=== PATIENT | male | born 1995 | race Caucasian/White ===

== ENCOUNTER 2016-03-28 10:53 | Observation (INO) | payer OTHER ==
[~2016-03-28] VITALS: Ht 175.3 cm; Wt 76.0 kg
[2016-03-28] MEDS ORDERED: INSULIN HUMAN REGULAR 1,000 UNITS/10 ML VIAL SQ PRN (11:30)
[2016-03-28] MEDS ORDERED: ceFAZolin 1,000 MG/NS 100 ML IV SCH ×2 (11:30)
[2016-03-28] MEDS ORDERED: METOPROLOL TARTRATE 25 MG TAB PO PRN (11:30)
[2016-03-28 11:39] VITALS: BP 129/65; PULSE 52; RESP 16; TEMP 98.1; O2SAT 100
[2016-03-28] MEDS ORDERED: PROPOFOL 200 MG/20 ML AMP IV ONE (12:00)
[2016-03-28] MEDS ORDERED: NORMOSOL R INJ 2,000 ML IV ONE (12:00)
[2016-03-28] MEDS ORDERED: LACTATED RINGER'S 1000 ML IV SCH (12:00)
[2016-03-28] MEDS ORDERED: ONDANSETRON HCL 4 MG/2 ML VIAL IV PUSH ONE (12:00)
[2016-03-28] MEDS ORDERED: SODIUM CHLORID 0.9% 500 ML IV SCH (12:00)
[2016-03-28] MEDS ORDERED: FAMOTIDINE 20 MG/2 ML VIAL ONE ×2 (13:03→13:04)
[2016-03-28] MEDS ORDERED: MIDAZOLAM HCL 2 MG/2 ML VIAL ONE ×3 (13:03→14:12)
[2016-03-28] MEDS ORDERED: SUGAMMADEX SODIUM 200 MG/2 ML VIAL IV PUSH ONE ×2 (13:04)
[2016-03-28] MEDS ORDERED: IOHEXOL 350 MG/ML 50 ML BTL (for RAD DIAG) ONE (14:11)
[2016-03-28] MEDS ORDERED: fentaNYL CITRATE 250 MCG/5 ML AMP ONE (14:12)
--- NOTE | 2016-03-28 16:11 | RADRPT ---
EXAM DATE/TIME: 03/28/2016 14:12 [facility] COMPARISON: No previous studies available for comparison. INDICATIONS : Right renal disease. Post right ureteral stent placement. 0.37 minutes 2 CONTRAST: Instilled by Ordering Physician MEDICAL HISTORY : None. SURGICAL HISTORY : None. ENCOUNTER: Initial ACUITY: 1 day PAIN SCORE: Non-responsive. LOCATION: Right kidney. FINDINGS: Contrast is seen in the right collecting system. There appears to be some hydronephrosis. On the film marked #2 there is a internal double J stent in place. CONCLUSION: Internal double J stent in place. Sheldon Nunez MD on March 28, 2016 at 16:09 Board Certified Radiologist. This report was verified electronically.
[2016-03-28] MEDS ORDERED: oxyCODONE/ACETAMINOPHEN 5 MG/325 MG TAB PO PRN (18:15)
[2016-03-28] MEDS: PANTOPRAZOLE SODIUM 40 MG VIAL IV PUSH SCH (18:30)
[2016-03-28] MEDS ORDERED: *morphine SULFATE 8 MG/ML PERIprocedure ONLY ONE ×2 (18:42→18:53)
[2016-03-28] MEDS: SODIUM CHLOR 0.9% 1000 ML INJ 1,000 ML IV SCH (18:50)
[2016-03-28] MEDS ORDERED: DO NOT ADM ANY ANTICOAGULANT DRUGS XX PRN (19:00)
[2016-03-28] MEDS ORDERED: MORPHINE SULFATE 8 MG/ML INJ ONE (19:54)
[2016-03-28] MEDS: oxyCODONE/ACETAMINOPHEN 5 MG/325 MG TAB PO PRN (21:02)
[2016-03-28] MEDS: DOCUSATE SODIUM 100 MG CAP PO SCH (21:13)
[2016-03-28 21:29] VITALS: O2SAT 98
[2016-03-28 22:00] VITALS: BP 154/74; PULSE 62; RESP 20; TEMP 98.9; O2SAT 98
[2016-03-28] MEDS: MORPHINE SULFATE 4 MG/ML INJ IV PUSH PRN (22:17)
[2016-03-28] MEDS ORDERED: ACETAMINOPHEN 1000 MG/100 ML VIAL IV ONE (22:45)
[2016-03-28] MEDS: KETOROLAC TROMETHAMINE 30 MG/ML (IVP) VIAL IV PUSH SCH (22:57)
[2016-03-29] VITALS (8 sets, daily range): BP systolic 128–154; BP diastolic 68–79; PULSE 55–72; RESP 16–20; TEMP 97.2–98.9; O2SAT 96–98
[2016-03-29] MEDS: oxyCODONE/ACETAMINOPHEN 5 MG/325 MG TAB PO PRN ×2 (00:34→09:12)
[2016-03-29] MEDS: SODIUM CHLOR 0.9% 1000 ML INJ 1,000 ML IV SCH ×3 (02:55→20:15)
[2016-03-29] MEDS: MORPHINE SULFATE 8 MG/ML INJ IV PUSH PRN ×2 (02:56→20:12)
[2016-03-29] MEDS: KETOROLAC TROMETHAMINE 30 MG/ML (IVP) VIAL IV PUSH SCH ×4 (05:28→22:41)
[2016-03-29] MEDS: DOCUSATE SODIUM 100 MG CAP PO SCH ×2 (09:12→20:15)
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
[2016-03-29] MEDS: MORPHINE SULFATE 4 MG/ML INJ IV PUSH PRN (10:44)
[2016-03-29] MEDS ORDERED: ACETAMINOPHEN 1000 MG/100 ML VIAL IV ONE (11:30)
[2016-03-29] MEDS: ACETAMINOPHEN 1000 MG/100 ML VIAL IV SCH ×2 (13:41→18:36)
[2016-03-29] MEDS: PANTOPRAZOLE SODIUM 40 MG VIAL IV PUSH SCH (18:37)
--- NOTE | 2016-03-29 21:08 | HHI.PR ---
Subjective Remarks having right sided abdominal pain near drain site. IV Acetaminophen works best for him. Tolerating clears. Denies nausea, fevers. Passing flatus. Denies CP/ SOB. Has not been OOB. Objective Vital Signs Vital Signs Date Time Temp Pulse Resp B/P Pulse Ox O2 Delivery O2 Flow Rate FiO2 03/29/16 20:00 97.8 72 18 138/79 97 03/29/16 16:10 98 21 03/29/16 16:00 98.0 58 17 142/78 98 03/29/16 12:00 97.2 55 17 140/78 98 03/29/16 08:00 97.3 60 16 128/72 98 03/29/16 06:28 16 03/29/16 04:00 98.4 68 18 144/68 97 03/29/16 03:01 16 03/29/16 00:00 98.9 62 20 154/74 98 03/28/16 22:22 16 03/28/16 22:02 16 03/28/16 22:00 98.9 62 20 154/74 98 03/28/16 21:29 98 21 I/O 03/28/16 03/28/16 03/28/16 03/29/16 03/29/16 03/29/16 07:00 15:00 23:00 07:00 15:00 23:00 Intake Total 100 ml 220 ml 480 ml Output Total 250 ml 2650 ml 1370 ml Balance -150 ml -2430 ml -890 ml Intake Oral 220 ml 480 ml IV Total 100 ml Output Urine Total 250 ml 2620 ml 1370 ml Drainage Total 30 ml # Bowel Movements 0 Objective Remarks NAD. A/O x 3 non-labored respirations RRR abd soft, nondistended, appropriately tender, especially sensitive at drain site. No peritoneal signs. inc c/d/i urine clear, yellow. GALINA drain with scant serous drainage Ext NT. No c/c/e Procedures Right Robotic Pyeloplasty Assessment and Plan Assessment and Plan POD #1 s/p Right Robotic Pyeloplasty -Adjust pain meds. Add Acetaminophen IV every 6 hours -Advance diet -Scant drainage from GALINA. Good uop. Will d/c turk in a.m. -OOB today -GI/DVT prophylaxis Dwayne Malave MD Mar 29, 2016 21:08
[2016-03-29] MEDS: traMADol HCL 50 MG TAB PO SCH (21:16)
[2016-03-29] MEDS: HYDROmorphone HCL PF 1 MG/ML VIAL IV PUSH PRN (22:24)
[2016-03-30] MEDS: ACETAMINOPHEN 1000 MG/100 ML VIAL IV SCH ×3 (00:58→11:34)
[2016-03-30] MEDS: traMADol HCL 50 MG TAB PO SCH ×4 (02:44→20:07)
[2016-03-30] MEDS: KETOROLAC TROMETHAMINE 30 MG/ML (IVP) VIAL IV PUSH SCH ×2 (04:08→10:15)
[2016-03-30 05:53] LABS: BASOPHIL % 0.4 % (0.0-2.0); EOSINOPHIL # 0.1 TH/MM3 (0-0.4); EOSINOPHIL % 1.8 % (0.0-4.0); HEMATOCRIT 43.1 % (39.0-51.0); HEMO FLAGS DIFF FINAL; LYMPH % 29.1 % (9.0-44.0); LYMPHOCYTE # 2.4 TH/MM3 (1.0-4.8); MEAN CELL VOLUME 85.9 FL (80.0-100.0); MEAN CORPUSCULAR HEMOGLOBIN 30.3 PG (27.0-34.0); MEAN CORPUSCULAR HGB CONC 35.3 % (32.0-36.0); MONO % 7.3 % (0.0-8.0); NEUT % 61.4 % (16.0-70.0); PLATELET COUNT 215 TH/MM3 (150-450); RED BLOOD COUNT 5.02 MIL/MM3 (4.50-5.90); RED CELL DISTRIBUTION WIDTH 12.7 % (11.6-17.2); WHITE BLOOD COUNT 8.2 TH/MM3 (4.0-11.0)
[2016-03-30 06:06] LABS: BICARBONATE 29.3 MEQ/L (21.0-32.0); POTASSIUM 3.6 MEQ/L (3.5-5.1)
[2016-03-30] MEDS: ONDANSETRON HCL 4 MG/2 ML VIAL IV PUSH PRN (06:17)
[2016-03-30] MEDS: HYDROmorphone HCL PF 1 MG/ML VIAL IV PUSH PRN ×2 (06:18→14:52)
[2016-03-30 08:00] VITALS: BP 136/88; PULSE 54; RESP 16; TEMP 97.1; O2SAT 98
[2016-03-30] MEDS: SODIUM CHLOR 0.9% 1000 ML INJ 1,000 ML IV SCH (08:56)
[2016-03-30] MEDS: DOCUSATE SODIUM 100 MG CAP PO SCH ×2 (08:56→20:06)
[2016-03-30 11:03] VITALS: O2SAT 96
[2016-03-30 12:00] VITALS: BP 148/78; PULSE 58; RESP 17; TEMP 96.8; O2SAT 98
--- NOTE | 2016-03-30 14:53 | HHI.PR ---
Subjective Remarks pain improved. Tolerating diet. Ambulated in hallways x 1. Denies fever, chills , nausea. Passing Flatus. Voiding on own. Minimal drain output. Objective Vital Signs Vital Signs Date Time Temp Pulse Resp B/P Pulse Ox O2 Delivery O2 Flow Rate FiO2 03/30/16 12:04 18 03/30/16 12:00 96.8 58 17 148/78 98 03/30/16 11:15 20 03/30/16 11:03 96 21 03/30/16 09:56 20 03/30/16 08:00 97.1 54 16 136/88 98 03/30/16 06:48 18 03/29/16 23:34 97.4 59 16 138/77 96 03/29/16 20:00 97.8 72 18 138/79 97 03/29/16 16:10 98 21 03/29/16 16:00 98.0 58 17 142/78 98 I/O 03/29/16 03/29/16 03/29/16 03/30/16 03/30/16 03/30/16 06:59 14:59 22:59 06:59 14:59 22:59 Intake Total 220 ml 480 ml 280 ml 1644 ml 2064 ml Output Total 2650 ml 1370 ml 800 ml 450 ml 845 ml Balance -2430 ml -890 ml -520 ml 1194 ml 1219 ml Intake Oral 220 ml 480 ml 280 ml 280 ml 600 ml IV Total 1364 ml 1464 ml Output Urine Total 2620 ml 1370 ml 800 ml 400 ml 825 ml Drainage Total 30 ml 50 ml 20 ml # Bowel Movements 0 0 Result Diagram: 03/30/1652503/30/16 05 Objective Remarks NAD. A/O x 3 non-labored respirations RRR abd soft, nondistended, appropriately tender, especially sensitive at drain site. No peritoneal signs. inc c/d/i urine pink. GALINA drain with scant serous drainage Ext NT. No c/c/e Procedures Right Robotic Pyeloplasty Assessment and Plan Assessment and Plan POD #2 s/p Right Robotic Pyeloplasty -Wean off IV pain meds -Advance diet -Scant drainage from GALINA. GALINA creatinine is serum. No evidence of urine leak. Will remove drain. -GI/DVT prophylaxis -Ambulate -Possible d/c tomorrow. Dwayne Malave MD Mar 30, 2016 14:53
[2016-03-30 16:00] VITALS: BP 132/85; PULSE 52; RESP 16; TEMP 98.3; O2SAT 98
[2016-03-30] MEDS: PANTOPRAZOLE SOD 40 MG DELAYED RELEASE TAB PO SCH (16:48)
[2016-03-30] MEDS: oxyCODONE/ACETAMINOPHEN 5 MG/325 MG TAB PO PRN ×2 (18:43→22:53)
[2016-03-30] MEDS ORDERED: ACETAMINOPHEN 1000 MG/100 ML VIAL IV PRN (19:00)
[2016-03-30 20:00] VITALS: BP 130/80; PULSE 56; RESP 21; TEMP 98.8; O2SAT 97
[2016-03-30] MEDS: KETOROLAC TROMETHAMINE 30 MG/ML (IVP) VIAL IV PUSH PRN (21:00)
[2016-03-31] VITALS: BP 142/88; PULSE 55; RESP 20; TEMP 97.7; O2SAT 98
[2016-03-31] MEDS: traMADol HCL 50 MG TAB PO SCH ×4 (02:39→19:29)
[2016-03-31] MEDS: oxyCODONE/ACETAMINOPHEN 5 MG/325 MG TAB PO PRN ×5 (02:39→20:44)
[2016-03-31] MEDS: KETOROLAC TROMETHAMINE 30 MG/ML (IVP) VIAL IV PUSH PRN (04:17)
[2016-03-31 08:00] VITALS: BP 128/81; PULSE 61; RESP 16; TEMP 98.1; O2SAT 96
[2016-03-31] MEDS: DOCUSATE SODIUM 100 MG CAP PO SCH ×2 (08:13→19:29)
[2016-03-31] MEDS: ONDANSETRON HCL 4 MG/2 ML VIAL IV PUSH PRN ×2 (10:07→18:08)
[2016-03-31 12:00] VITALS: BP 127/79; PULSE 54; RESP 16; TEMP 98.9; O2SAT 98
[2016-03-31 16:00] VITALS: BP 136/78; PULSE 56; RESP 18; TEMP 98.8; O2SAT 98
[2016-03-31] MEDS: PANTOPRAZOLE SOD 40 MG DELAYED RELEASE TAB PO SCH (16:24)
[2016-03-31] MEDS ORDERED: DOCU1CAP39 PO (16:28)
[2016-03-31] MEDS ORDERED: ULTR50TA5 PO (16:28)
[2016-03-31] MEDS ORDERED: OXYC1TAB63 PO (16:28)
--- NOTE | 2016-03-31 16:32 | HHI.PR ---
Subjective Remarks feels much better with drain out. Ambulating more in hallways. Occasional dizziness after walking around. Passing flatus. Denies fevers. Voiding on own. Objective Vital Signs Vital Signs Date Time Temp Pulse Resp B/P Pulse Ox O2 Delivery O2 Flow Rate FiO2 03/31/16 12:00 98.9 54 16 127/79 98 03/31/16 09:13 20 03/31/16 08:00 98.1 61 16 128/81 96 03/31/16 07:34 20 03/31/16 00:00 97.7 55 20 142/88 98 03/30/16 20:00 98.8 56 21 130/80 97 I/O 03/30/16 03/30/16 03/30/16 03/31/16 03/31/16 03/31/16 07:00 15:00 23:00 07:00 15:00 23:00 Intake Total 1644 ml 2064 ml 240 ml Output Total 450 ml 845 ml Balance 1194 ml 1219 ml 240 ml Intake Oral 280 ml 600 ml 240 ml IV Total 1364 ml 1464 ml Output Urine Total 400 ml 825 ml Drainage Total 50 ml 20 ml # Voids 2 # Bowel Movements 0 Result Diagram: 03/30/16 0526 03/30/16525 Objective Remarks NAD. A/O x 3 non-labored respirations RRR abd soft, nondistended, appropriately tender, especially sensitive at drain site. No peritoneal signs. inc c/d/i Ext NT. No c/c/e Procedures Right Robotic Pyeloplasty Assessment and Plan Assessment and Plan POD #3 s/p Right Robotic Pyeloplasty -Doing much better -Continue Percocet, Tramadol. D/C Toradol. -D/C home in A.M. -F/U in 2 weeks. Dwayne Malave MD Mar 31, 2016 16:32
[2016-03-31 20:00] VITALS: BP 131/78; PULSE 106; RESP 19; TEMP 97.3; O2SAT 98
[2016-04-01] VITALS: BP_SYST 130; BP_SYST 131; BP_DIAS 78; BP_DIAS 85; PULSE 106; PULSE 53; RESP 19; TEMP 97.3; TEMP 97.6; O2SAT 95; O2SAT 98
[2016-04-01] MEDS: oxyCODONE/ACETAMINOPHEN 5 MG/325 MG TAB PO PRN ×3 (00:40→09:21)
[2016-04-01] MEDS: traMADol HCL 50 MG TAB PO SCH ×2 (03:20→08:04)
[2016-04-01 08:00] VITALS: BP 141/86; PULSE 66; RESP 18; TEMP 96.3; O2SAT 97
[2016-04-01] MEDS: DOCUSATE SODIUM 100 MG CAP PO SCH (08:04)
[2016-04-01] MEDS: ONDANSETRON HCL 4 MG/2 ML VIAL IV PUSH PRN (08:35)
--- NOTE | 2016-04-23 08:28 | HHI.DS ---
Discharge Summary Admission Date Mar 28, 2016 at 18:16 Admitting Diagnosis Right UPJ Obstruction Right Renal Calculi. Procedures cystoscopy, right retrograde pyelogram, right ureteral stent insertion, right robotic pyeloplasty Hospital Course 20 yo male with right UPJ obstruction was admitted following a right robotic pyeloplasty. He had significant pain on POD #1. He was switched to IV Acetaminophen which helped control it. He had minimal drain output. Pruett catheter was removed on POD#2. His drain output did not increase. Sam Creatinine was serum. It was removed. He was discharged home on POD #4. Pt Condition on Discharge: Fair Discharge Disposition: Discharge Home Discharge Instructions DIET: Follow Instructions for: As Tolerated, No Restrictions Activities you can perform: Full Weight Bearing, Shower Only-No Bath Activities to avoid: Strenuous Activity Additional Activity Instructio: No heavylifting greater than 15 lbs x 4 week. No contact sports x 4 weeks. New Medications: Docusate Sodium (Dok) 100 Mg Cap 100 MG PO BID PRN CONSTIPATION #30 Ref 0 CAP Oxycodone-Acetaminophen (Oxycodone-Acetaminophen) 5-325 mg Tab 2 TAB PO Q4H PRN BREAKTHROUGH PAIN #30 Ref 0 TAB Tramadol (Ultram) 50 Mg Tab 50 MG PO Q6H PRN PAIN GREATER THAN 6 #40 Ref 0 TAB Dwayne Malave MD Apr 23, 2016 08:28
== END 2016-04-01 11:24 | disposition home or self-care (01) ==
LOC: HSDC 10:53 → HSDI 18:16 → N07A 20:54
PROVIDERS: ADMIT Urology; ATTEND Urology
DX: N13.2 Hydronephrosis with renal and ureteral calculous obstruction (principal); N13.5 Crossing vessel and stricture of ureter without hydronephrosis
CPT/HCPCS: 00862; 50544; 52332; 74420; 80048; 82570; 85025; 94150; C2617; C9113; G0378; J0131; J0690; J1170; J1885; J2250; J2270; J2405; J3010; J7030; J7120; Q9967

== ENCOUNTER 2017-03-17 15:10 | Emergency (ER) | payer OTHER ==
[~2017-03-17] VITALS: Ht 175.3 cm; Wt 73.0 kg
[~2017-03-17 15:10] MED LIST: DOCU1CAP39 PO; OXYC1TAB63 PO; TRAM50 PO
[2017-03-17 15:21] VITALS: BP 129/77; PULSE 85; RESP 17; TEMP 98.3; O2SAT 100
[2017-03-17] MEDS ORDERED: ACETAMINOPHEN 325 MG TAB PO ONE (16:30)
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
[2017-03-17] MEDS ORDERED: ZOFR4TAB PO (18:32)
[2017-03-17] MEDS ORDERED: CYCL10TA PO (18:32)
[2017-03-17 18:44] VITALS: BP 118/64
== END 2017-03-17 18:58 | disposition home or self-care (01) ==
LOC: NEPE 15:10
DX: S09.90XA Unspecified injury of head, initial encounter (principal); S39.012A Strain of muscle, fascia and tendon of lower back, initial encounter; S29.012A Strain of muscle and tendon of back wall of thorax, initial encounter; N13.2 Hydronephrosis with renal and ureteral calculous obstruction; F90.9 Attention-deficit hyperactivity disorder, unspecified type; V43.52XA Car driver injured in collision with other type car in traffic accident, initial encounter; Z87.442 Personal history of urinary calculi; Z79.899 Other long term (current) drug therapy
CPT/HCPCS: 70450; 72125; 72128; 72131